=== PATIENT | female | born 1945 | race Two or more races ===

== ENCOUNTER 2017-11-24 09:34 | Outpatient (CLI) | payer OTHER ==
[~2017-11-24 09:34] MED LIST: NABUMETONE500 MG PO; NORVASC5 MG PO; PERCOCET 5-3251 EACH PO; TRAMADOL HCL-AP1 TAB PO; ZANTAC300 MG PO; ZOFRAN4 MG PO
== END 2017-11-24 10:00 | disposition home or self-care (01) ==
LOC: RAD 09:34
DX: Z12.31 Encounter for screening mammogram for malignant neoplasm of breast (principal); Z87.898 Personal history of other specified conditions; M25.561 Pain in right knee; M25.562 Pain in left knee

== ENCOUNTER → 2018-02-17 | Outpatient (CLI) | payer OTHER | END | disposition home or self-care (01) | LOC: NUCLEAR 13:03 | DX: M81.0 Age-related osteoporosis without current pathological fracture (principal); M80.00XA Age-related osteoporosis with current pathological fracture, unspecified site, initial encounter for fracture; M85.80 Other specified disorders of bone density and structure, unspecified site ==

== ENCOUNTER → 2018-03-25 06:52 | Outpatient (CLI) | payer OTHER | END | disposition home or self-care (01) | LOC: EKG 06:52 | DX: I10 Essential (primary) hypertension (principal) ==

== ENCOUNTER 2018-03-25 07:34 | Outpatient (CLI) | payer OTHER | END 2018-03-25 07:40 | disposition home or self-care (01) | LOC: RAD 07:34 | DX: R07.89 Other chest pain (principal); Z01.818 Encounter for other preprocedural examination ==

== ENCOUNTER 2018-06-18 09:45 | Outpatient (CLI) | payer OTHER | END 2018-06-18 09:53 | disposition home or self-care (01) | LOC: RAD 09:45 → MRI 10:15 | DX: M25.551 Pain in right hip (principal); M25.552 Pain in left hip | CPT/HCPCS: 73718 ==

== ENCOUNTER 2019-01-05 07:32 | Outpatient (CLI) | payer OTHER | END 2019-01-05 07:40 | disposition home or self-care (01) | LOC: TOM 07:32 | DX: R10.84 Generalized abdominal pain (principal) ==

== ENCOUNTER 2019-03-14 08:47 | Outpatient (CLI) | payer OTHER | END 2019-03-14 08:49 | disposition home or self-care (01) | LOC: RAD 08:47 | DX: M54.2 Cervicalgia (principal) ==

== ENCOUNTER 2019-03-18 10:20 | Outpatient (CLI) | payer OTHER | END 2019-03-18 11:16 | disposition home or self-care (01) | LOC: NUCLEAR 10:20 | DX: M25.461 Effusion, right knee (principal); M25.462 Effusion, left knee; M79.662 Pain in left lower leg; M79.661 Pain in right lower leg ==

== ENCOUNTER 2019-03-31 13:18 | Outpatient (CLI) | payer OTHER | END 2019-03-31 13:22 | disposition home or self-care (01) | LOC: MRI 13:18 | DX: M25.562 Pain in left knee (principal); M25.561 Pain in right knee | CPT/HCPCS: 73721 ==

== ENCOUNTER 2020-11-27 14:35 | Outpatient (CLI) | payer OTHER | END 2020-11-27 14:42 | disposition home or self-care (01) | LOC: RAD 14:35 | PROVIDERS: ATTEND Internal Medicine Cardiovascular Disease | DX: M46.07 Spinal enthesopathy, lumbosacral region (principal) ==

== ENCOUNTER 2020-12-04 08:57 | Outpatient (CLI) | payer OTHER | END 2020-12-04 09:00 | disposition home or self-care (01) | LOC: MRI 08:57 | PROVIDERS: ATTEND Internal Medicine Cardiovascular Disease | DX: M54.5 Low back pain (principal) | CPT/HCPCS: 72148 ==

== ENCOUNTER 2021-04-15 10:34 | Outpatient (CLI) | payer OTHER | END 2021-04-15 10:46 | disposition home or self-care (01) | LOC: MAMO-SONO 10:34 | PROVIDERS: ATTEND Obstetrics & Gynecology | DX: N60.11 Diffuse cystic mastopathy of right breast (principal); N60.12 Diffuse cystic mastopathy of left breast; Z12.31 Encounter for screening mammogram for malignant neoplasm of breast ==

== ENCOUNTER 2021-04-15 13:12 | Outpatient (CLI) | payer OTHER | END 2021-04-15 13:13 | disposition home or self-care (01) | LOC: NUCLEAR 13:12 | PROVIDERS: ATTEND Obstetrics & Gynecology | DX: M81.0 Age-related osteoporosis without current pathological fracture (principal) ==

== ENCOUNTER 2021-05-27 10:35 | Outpatient (CLI) | payer OTHER | END 2021-05-27 10:42 | disposition home or self-care (01) | LOC: SONOGRAMA 10:35 | DX: M79.641 Pain in right hand (principal) ==

== ENCOUNTER → 2022-04-10 | Outpatient (CLI) | payer OTHER | END | disposition home or self-care (01) | LOC: NUCLEAR 07:39 | PROVIDERS: ATTEND Internal Medicine Cardiovascular Disease | DX: I87.2 Venous insufficiency (chronic) (peripheral) (principal) ==

== ENCOUNTER 2022-04-17 08:22 | Outpatient (CLI) | payer OTHER | END 2022-04-17 08:32 | disposition home or self-care (01) | LOC: MAMO-SONO 08:22 | PROVIDERS: ATTEND Obstetrics & Gynecology | DX: N60.11 Diffuse cystic mastopathy of right breast (principal); N60.12 Diffuse cystic mastopathy of left breast ==

== ENCOUNTER 2022-06-09 10:21 | Outpatient (CLI) | payer OTHER | END 2022-06-09 10:27 | disposition home or self-care (01) | LOC: SONOGRAMA 10:21 | PROVIDERS: ATTEND Physical Medicine & Rehabilitation Sports Medicine | DX: M25.522 Pain in left elbow (principal) ==

== ENCOUNTER 2023-04-23 10:36 | Outpatient (CLI) | payer OTHER | END 2023-04-23 10:44 | disposition home or self-care (01) | LOC: MAMO-SONO 10:36 | PROVIDERS: ATTEND Obstetrics & Gynecology | DX: N60.11 Diffuse cystic mastopathy of right breast (principal); N60.12 Diffuse cystic mastopathy of left breast; Z12.31 Encounter for screening mammogram for malignant neoplasm of breast ==

== ENCOUNTER 2023-04-23 13:05 | Outpatient (CLI) | payer OTHER | END 2023-04-23 13:06 | disposition home or self-care (01) | LOC: NUCLEAR 13:05 | PROVIDERS: ATTEND Obstetrics & Gynecology | DX: M81.0 Age-related osteoporosis without current pathological fracture (principal) ==

== ENCOUNTER 2023-08-06 10:12 | Outpatient (CLI) | payer OTHER | END 2023-08-06 10:22 | disposition home or self-care (01) | LOC: MRI 10:12 | PROVIDERS: ATTEND Physical Medicine & Rehabilitation | DX: M54.2 Cervicalgia (principal) | CPT/HCPCS: 72141 ==

== ENCOUNTER 2024-11-26 08:12 | Emergency (ER) | payer OTHER ==
[~2024-11-26] VITALS: Ht 162.6 cm; Wt 67.1 kg
[2024-11-26 11:03] LABS: BASO % 0.8 % (0.1-1.2); EOS # 0.08 (0.04-0.54); EOS % 1.3 % (0.7-7.0); HEMATOCRIT 41.7 % (34.1-44.9); HEMOGLOBIN 13.9 g/dL (11.2-15.7); LYMPH # 2.35 (1.18-3.74); LYMPH % 37.5 % (19.3-53.1); MEAN CORPUSCULAR HEMOGLOBIN 27.7 pg (25.6-32.2); MONO # 0.42 (0.24-0.82); MONO % 6.7 % (4.7-12.5); NEUT # 3.35 (1.56-6.13); NEUT % 53.5 % (34.0-71.1); PLATELET COUNT 368 K/uL (163-369); RED BLOOD COUNT 5.02 M/uL (3.93-5.22); RED CELL DISTRIBUTION WIDTH 13.1 % (11.6-14.4)
[2024-11-26 11:53] LABS: INR 1.07; PARTIAL THROMBOPLASTIN TIME 21.5 SECONDS (22.0-34.0); PROTHROMBIN TIME 11.6 SECONDS (9.0-11.5)
[2024-11-26 11:56] LABS: PH,URINE 7.5 (5.0-8.0); URINE APPEARANCE Clear; URINE BILIRRUBIN Negative (NEGATIVE); URINE BLOOD Negative; URINE COLOR Yellow; URINE GLUCOSE Negative (NEGATIVE); URINE KETONE Negative (NEGATIVE); URINE LEUKOCYTE Negative; URINE NITRATE Negative; URINE PROTEIN Negative (NEGATIVE); URINE UROBILINOGEN 0.2 E.U./dl
[2024-11-26 12:00] LABS: URINE BACTERIA 6.1 uL (0.0-1933)
[2024-11-26 12:01] LABS: URINE RBC 0.8 uL (0.0-20.8); URINE WBC 0.1 uL (0.0-23.2)
[2024-11-26 12:03] LABS: ALBUMIN 3.8 gm/dL (3.4-5.0); BILIRUBIN TOTAL 0.43 mg/dL (0.3-1.2); CREATININE SERUM 0.58 mg/dL (0.55-1.02); GFR 100.54; GLOBULINA 4.1 G/DL (2.4-3.5); TOTAL PROTEIN 7.9 gm/dL (6.4-8.2)
[2024-11-26 12:04] LABS: POTASSIUM 4.04 mEq/L (3.5-5.1)
== END 2024-11-26 15:28 | disposition home or self-care (01) ==
LOC: ER 08:15
PROVIDERS: Emergency Medicine
DX: R10.9 Unspecified abdominal pain (principal); Z88.0 Allergy status to penicillin